=== PATIENT | male | born 1975 ===

== ENCOUNTER 2020-03-22 05:30 | Inpatient (IN) | payer BC ==
[2020-03-22] VITALS (10 sets, daily range): BP systolic 118–144; BP diastolic 60–105; PULSE 64–97; TEMP 96.4–98.4
[~2020-03-22] VITALS: Ht 177.8 cm; Wt 114.2 kg
[2020-03-22] MEDS ORDERED: CELEBREX 200MG200 MG PO (05:51)
--- NOTE | 2020-03-22 07:59 | NUR ---
Vancomycin Initial Dosing Pharmacy Note Ordering provider: Mil Das Indication/duration: possible osteo LABS: PENDING Recommendation: 2 g load, maintenance dosing to be determined based on SCr Loading dose: 2 grams Maintenance dose: pending labs Trough goal: 15-20 ug/mL
--- NOTE | 2020-03-22 08:16 | NUR ---
Patient to room from PACU via stretcher. Patient able to transfer self from stretcher to bed. Full movement in right lower extremity, normal sensation. CMS intact. Dressing to right ankle/foot CDI. Hard shoe on to right foot. Ice pack to right ankle/foot area. Oriented to room. at bedside. Patient would like to get something to eat and drink. Denies additional needs at this time.
[2020-03-22 09:20] LABS: CREATININE, serum 1.08 (0.66-1.25)
--- NOTE | 2020-03-22 09:31 | NUR ---
Patient ambulates to bathroom with stand by assist of one. Gait steady, weightbearing as tolerates to right foot. Denies pain. Voids and then returns to bed. Denies additional needs.
--- NOTE | 2020-03-22 11:38 | NUR ---
Patient having some itching to head and shoulder area. No rash noted. AIDEN Hager, notified and orders received for Benadryl, administer at this time as prescribed. AIDEN Hager, says to monitor patient at next dose of Vancomycin to see if same reaction or not, unclearr if could be due to medication, anesthesia, or patient just experiencing itchy skin.
--- NOTE | 2020-03-22 12:30 | NUR ---
Sitting up in bed watching TV. CMS intact to right lower leg. Patient says that his itching has resolved. Explain when they give the dose of Vancomycin tonight to monitor for return of itching and let nurse know immediately if it returns. Patient verbalizes understanding and denies further needs at this time.
--- NOTE | 2020-03-22 16:44 | NUR ---
Sitting up in bed watching TV. Rates pain to right foot 3/10, says that he feels like the block is worn off, notices pain increases when he stands on foot. Declines need for medication at this time. Verbalizes he is doing okay and no further needs at this time.
--- NOTE | 2020-03-22 21:00 | NUR ---
Resting in bed. Assessment complete. Lungs clear. Heart sounds normal. Bowels active x4. Pulses present throughout. No edema noted. INT right hand without complications. Denies pain at this time. Dressing to right foot CDI. Denies needs. Will monitor.
--- NOTE | 2020-03-22 22:10 | NUR ---
Patient tolerated vanco infusion without reaction at this time. Will continue to monitor.
--- NOTE | 2020-03-22 23:50 | NUR ---
Resting in bed asleep. No obvious discomfort at this time. Call light in reach. Will monitor.
[2020-03-23] VITALS (7 sets, daily range): BP systolic 127–166; BP diastolic 65–93; PULSE 70–89; TEMP 98.2–99.2
--- NOTE | 2020-03-23 02:05 | NUR ---
Resting in bed. Denies needs. Call light in reach.
--- NOTE | 2020-03-23 04:27 | NUR ---
Resting in bed. Denies needs. Call light in reach.
--- NOTE | 2020-03-23 06:34 | NUR ---
Patient had uneventful night with minimal pain. Resting in bed this AM. Call light in reach.
--- NOTE | 2020-03-23 07:05 | NUR ---
Report given to DARRICK Grant
[2020-03-23 07:10] LABS: BASO # 0.1 (0.0-0.2); BASO % 0.6 % (0.0-2.0); EOS # 0.1 (0.0-0.7); EOS % 1.6 % (0-4.0); GRAN # 6.6 (1.4-6.5); GRAN % 73.3 % (42.2-75.2); HEMATOCRIT 40.1 % (42.0-52.0); HEMOGLOBIN 13.4 g/dl (13.5-18.0); LYMPH # 1.5 (1.2-3.4); LYMPH % 16.2 % (20.0-51.0); MEAN CELL VOLUME 94 fl (80.0-100.0); MEAN CORPUSCULAR HEMOGLOBIN 32 pg (27.0-31.0); MEAN CORPUSCULAR HGB CONC 33 g/dl (33.0-37.0); MEAN PLATELET VOLUME 11.7 fl (7.4-10.4); MONO # 0.7 (0.1-0.6); PLATELET COUNT 201 K/mm3 (130-400); RED BLOOD COUNT 4.26 M/mm3 (4.20-5.60); REDCELL DISTRIBUTION WIDTH-CV 11.9 % (11.5-14.5)
--- NOTE | 2020-03-23 07:38 | NUR ---
Sitting up in chair. Denies pain at this time, pain does increase when he is up on foot. Patient is aware of plan for PICC today and that we will be waiting on cultures to come back to confirm he is on appropriate antibiotic treatment. Dressing to right foot CDI. Hard shoe remains in place to right foot. Patient does elevate right foot. Denies additional needs at this time.
[2020-03-23 09:46] LABS: BILIRUBIN,TOTAL 0.7 mg/dL (0.0-1.0); CALCIUM 8.7 mg/dL (8.4-10.2); CREATININE, serum 1.19 (0.66-1.25); POTASSIUM 4.5 mmol/L (3.4-5.0); TOTAL PROTEIN 6.8 gm/dL (6.4-8.2)
--- NOTE | 2020-03-23 11:34 | NUR ---
Cable Tool Operator collaborated with DARRICK Ramirez who advised patient had a PICC placed today and would likely need outpatient IV antibiotics. Patient will not discharge today. ATTILA met with patient to discuss discharge planning. Patient lives in [place], [place] with his Tyesha (ph#[phone]) and his three children ages 14,12, and 9[address] Lockwood for primary care and obtains medications from [facility] in [place]. Patient does not use any DME and is independent with [facility]. Patient does not have Advance Directives but was interested in taking home DPOA-HC form. ATTIAL provided. Patient reports he would like to have outpatient IV antibiotics set up at [facility] at discharge. ATTILA contacted Santos at [facility] who advised they can meet patient's needs and SW just needs to fax final antibiotic recommendations and orders to fax# [phone]. ATTILA will continue to follow.
--- NOTE | 2020-03-23 11:41 | NUR ---
First visit from the real estate account executive. No needs right now.
--- NOTE | 2020-03-23 12:16 | NUR ---
Patient up to shower at this time. PICC line covered. Removed dressing from right foot. Sutures remain intact, small piece of gauze from under skin hanging out as a drain. Bruising noted to site. Small amount of swelling noted. Will redress when done in shower.
--- NOTE | 2020-03-23 12:55 | NUR ---
Lying in bed with eyes open. No pain at this time. Denies any needs or concerns.
--- NOTE | 2020-03-23 17:31 | NUR ---
Lying in bed with eyes open watching TV. Denies pain. Patient says that he is bored. Supper tray brought to room. Patient gets up and sits in chair. Denies additional needs at this time.
--- NOTE | 2020-03-23 18:00 | NUR ---
Sitting up in recliner watching TV. Denies pain. CMS intact to right foot, dressing CDI. Patient provided with a pen to do crossword puzzles. Denies any additional needs or concerns.
--- NOTE | 2020-03-23 21:07 | NUR ---
Denies any pain at this time. No needs or complaints at this time. Independent in room. Meds administered. PICC to CATHERINE intact, dressing CDI. Dressing and boot in place to rt foot, cap refill >3sec. Call light within reach.
[2020-03-24 04:11] VITALS: BP 135/83; PULSE 885; TEMP 98.6
--- NOTE | 2020-03-24 06:36 | NUR ---
Pt made no complaints during this shift. Meds administered as scheduled. Call light within reach.
--- NOTE | 2020-03-24 06:45 | NUR ---
Patient sitting up in chair. Denies pain at this time. CMS intact to right foot. Dressing to right foot CDI, soft shoe on. Patient says that he is bored and is ready to get out of here today. Patient says that his will have a [address] as soon as we know for sure he is leaving he needs to be informed so she can arrange for someone to watch their kids so she can come pick him up. Patient denies any additional needs or concerns at this time.
--- NOTE | 2020-03-24 07:08 | NUR ---
Report given to DARRICK Grant.
[2020-03-24 07:39] LABS: BASO % 0.4 % (0.0-2.0); EOS # 0.2 (0.0-0.7); EOS % 1.8 % (0-4.0); GRAN # 7.7 (1.4-6.5); GRAN % 74.7 % (42.2-75.2); HEMATOCRIT 41.5 % (42.0-52.0); HEMOGLOBIN 14.1 g/dl (13.5-18.0); LYMPH # 1.6 (1.2-3.4); LYMPH % 15.3 % (20.0-51.0); MEAN CELL VOLUME 94 fl (80.0-100.0); MEAN CORPUSCULAR HEMOGLOBIN 32 pg (27.0-31.0); MEAN CORPUSCULAR HGB CONC 34 g/dl (33.0-37.0); MONO # 0.8 (0.1-0.6); MONO % 7.5 % (1.7-9.3); PLATELET COUNT 203 K/mm3 (130-400); RED BLOOD COUNT 4.41 M/mm3 (4.20-5.60); REDCELL DISTRIBUTION WIDTH-CV 11.9 % (11.5-14.5)
[2020-03-24 07:58] VITALS: BP 127/77; PULSE 96; TEMP 97.8
--- NOTE | 2020-03-24 09:32 | NUR ---
Vancomycin Follow-up Pharmacy Note Current regimen: vancomycin 1.25 G q12h Vancomycin trough: 7.6 Adjustments: increase to 1.75 G q12h. Trough 03/26 @ 0930
[2020-03-24 11:28] VITALS: BP 131/95; PULSE 86; TEMP 98.7
--- NOTE | 2020-03-24 12:34 | NUR ---
Sitting up in chair. Up independently in room. Denies pain. CMS intact to right lower extremity. Patient is excited to get to go home. Denies additional needs at this time.
[2020-03-24] MEDS ORDERED: MAXIPIMEIVSOL IV (14:39)
[2020-03-24] MEDS ORDERED: VANCO 1.751.75 GM/50 IV (14:39)
--- NOTE | 2020-03-24 15:00 | NUR ---
Review all discharge instructions with the patient. Questions answered. Patient verbalizes understanding and signs all discharge paperwork. Discharge packet with all orders to provide to [facility] provided to the patient. Patient will call when his is here to pick him up.
--- NOTE | 2020-03-24 15:05 | NUR ---
Patient calls and says that his is here to pick him up. Patient assisted to POV by MUSTAPHA Schmid, with all belongings.
--- NOTE | 2020-03-24 15:35 | NUR ---
Personal Fitness Manager collaborated with Santos at [facility] about patient's IV antibiotics. Patient will need Vancomycin and Cefepime twice daily, current times are 0900 and 2100. ATTILA faxed referral and orders to Santos at [facility] who advised patient will need to come through the ER entrance tonight around 2100 to get first doses. Santos advised after that, they can adjust the dose times to fit patient's schedule as needed. ATTILA met with patient to review discharge plan and patient verbalized understanding. Patient states he knows Santos personally and knows where the ER entrance is at [facility]. ATTILA collaborated with DARRICK Lemons-CM who submitted for prior authorization to [facility]. ATTILA contacted Santos and left a message to confirm receipt of orders. Patient's will worm picker patient this afternoon. No additional needs at this time.
== END 2020-03-24 15:05 | disposition home or self-care (01) | DRG 572 ==
LOC: SDCO 05:30 → SURG 05:30 → EDSTATUS 07:30 → SDCO 07:30 → SURG 08:16 → SDCO 08:17 → SURG 08:18
PROVIDERS: Internal Medicine Infectious Disease; ADMIT Orthopaedic Surgery Sports Medicine
PROC: 0JBQ0ZZ Excision of Right Foot Subcutaneous Tissue and Fascia, Open Approach (ICD-10-PCS; principal; 2020-03-22 07:30)
PROC: 02HV33Z Insertion of Infusion Device into Superior Vena Cava, Percutaneous Approach (ICD-10-PCS; 2020-03-23)
DX: L02.611 Cutaneous abscess of right foot (principal); T36.95XA Adverse effect of unspecified systemic antibiotic, initial encounter; M10.9 Gout, unspecified; Y92.239 Unspecified place in hospital as the place of occurrence of the external cause
CPT/HCPCS: OP; A9284; C1751; J0692; J2250; J2405; J2543; J2704; J2795; J3370; J7040; J7050; J7120